=== PATIENT | male | born 1980 | race Caucasian/White ===

== ENCOUNTER 2021-05-26 08:27 | Emergency (ER) | payer OTHER, SELFPAY ==
[2021-05-26 08:40] VITALS: BP 124/78; PULSE 71; RESP 16; TEMP 36.6; O2SAT 99; BMI 31.7
[2021-05-26 09:01] LABS: COVID19 -Nasal RAPID Negative (Negative)
--- NOTE | 2021-05-26 09:28 | ED.URI ---
HPI - URI/Sore Throat General Chief Complaint: Upper Respiratory Symptoms Stated Complaint: COVID SYMPTOMS Time Seen by Provider: 05/26/21 09:15 History of Present Illness HPI Narrative: Patient is a 40-year-old male with history of mental health illness presenting with upper respiratory like symptoms concern for COVID. He states that he is fully vaccinated, who was exposed 6 days ago while at work. His of the following day he had headache and diarrhea. Diarrhea resolved. Symptoms progressed and upper respiratory like symptoms as chest congestion and this morning he woke up without taste. Last night he slept under multiple blankets he was quite cold which is abnormal. Related Data Home Medications Medication Instructions Recorded Confirmed trazodone 100 mg tablet 100 mg PO DAILY 01/23/21 05/23/21 fluoxetine 60 mg tablet 60 mg PO DAILY 05/23/21 05/23/21 Allergies Allergy/AdvReac Type Severity Reaction Status Date / Time No Known Drug Allergies Allergy Unverified 05/23/21 14:13 Review of Systems Review of Systems Narrative: GENERAL: Denies chills, fatigue, malaise, fever, sweats, travel HEENT: Denies sinus pain, ear pain, sore throat, difficulty swallowing, neck pain RESPIRATORY: See HPI CARDIOVASCULAR: Denies chest pain, palpitations, orthopnea, edema GASTROINTESTINAL: She has PI : Denies dysuria, frequency, incontinence, hematuria, urinary retention, flank pain. MUSCULOSKELETAL: Denies weakness, joint pain, or bony pain SKIN: No rash, no erythema, no pruritus NEUROLOGIC: Denies weakness, dizziness, headache, numbness, change in speech, confusion PSYCHIATRIC: No concerning psychosocial issues. 12 point review of systems is negative except for those stated above and HPI Patient History Family History Family/Other Loud snoring Father Loud snoring Sleep apnea Obesity Heart disease Depression Anxiety Mother Depression Anxiety Family/Other Depression Family/Other Asperger syndrome Social History Smoking Status: Former smoker Smoking Status: Former smoker alcohol intake frequency: a few times a week Alcohol type: beer Substance Use Type: does not use Exam Initial Vital Signs Initial Vital Signs: Vital Signs Temperature 98 F 05/26/21 08:40 Pulse Rate 71 05/26/21 08:40 Respiratory Rate 16 05/26/21 08:40 Blood Pressure 124/78 05/26/21 08:40 Pulse Oximetry 99 05/26/21 08:40 GENERAL: Well-appearing, well-nourished and in no acute distress. HEENT: Head atraumatic,EOMI, pupils reactive, face symmetric, moist mucous membranes CARDIOVASCULAR: Regular rate and rhythm without murmurs, rubs or gallops. RESPIRATORY: Breath sounds equal bilaterally, no wheezes rales or rhonchi. ABDOMEN: Soft, nontender. Normoactive bowel sounds all 4 quadrants. No guarding or rebound. EXTREMITIES: Normal range of motion, no clubbing or edema. Neurovascularly intact NEUROLOGICAL: Alert and oriented x4. SKIN: Warm, dry, no laceration, no petechiae, no rashes or lesions. Course Orders Ordered: ED Orders 05/26/21 08:40 COVID19 -Nasal swab/Pre-Proc Stat Vital Signs Vital signs: Vital Signs - 8 hr 05/26/21 08:40 05/26/21 09:30 Temperature 98 F Pulse Rate 71 70 Respiratory Rate 16 16 Blood Pressure 124/78 116/71 Pulse Oximetry 99 96 MDM - URI/Sore Throat Lab Data Labs: Lab Results 05/26/21 Range/Units 08:40 SARS-CoV-2 (PCR) Negative (Negative) MDM Narrative Medical decision making narrative: Patient is fully vaccinated although his symptoms are extremely concerning and he has had a known exposure. I recommend repeat testing in about 2-3 days in quarantine for 14 days. He understands and agrees. Discharge Plan Departure Patient Disposition: Home Clinical Impression: Upper respiratory infection Instructions: DI for COVID-19 (Suspected or Confirmed ) Activity Restrictions/Additional Instructions: *You have been diagnosed with suspected COVID *What to do: At this time I recommend you have repeat testing in about 2-3 days. Symptoms are certainly concerning for COVID you had exposure. Please monitor your oxygen at home with a home pulse oximeter. It should remain above 90%, if it is lower than that you need to return to the emergency department. You need to follow [facility] quarantine guidelines and quarantine for 14 days *Continue to take medications as directed *Follow up with your primary care provider in 2-3 days *Return to ER if you should have oxygen less than 90%, increasing chest pain, shortness or any new, worsening or concerning symptoms Prescriptions: No Action trazodone 100 mg tablet 100 mg PO DAILY RF: 0 fluoxetine 60 mg tablet 60 mg PO DAILY RF: 0 Referrals: [facility] [Provider Group] Stand Alone Forms: Work Release Note
[2021-05-26 09:30] VITALS: BP 116/71; PULSE 70; RESP 16; O2SAT 96
== END 2021-05-26 09:45 | disposition home or self-care (01) ==
PROVIDERS: Emergency Provider Emergency Medicine
DX: J06.9 Acute upper respiratory infection, unspecified (principal); R19.7 Diarrhea, unspecified; Z20.822 Contact with and (suspected) exposure to COVID-19
CPT/HCPCS: 87635; 99282; C9803

== ENCOUNTER → 2022-11-11 08:09 | Outpatient (CLI) | payer OTHER, SELFPAY ==
--- NOTE | 2022-11-11 | DI.MRI.S_ITS ---
PROCEDURE: MR ANKLE RT WO CON INDICATIONS: Other instability, right ankle TECHNIQUE: Noncontrast sagittal T1 spin echo and T2 fast spin echo with fat saturation, axial proton density fast spin echo and T2 fast spin echo with fat saturation, coronal T1 spin echo and T2 fast spin echo with fat saturation through the ankle/hindfoot. COMPARISON: None. FINDINGS: Image quality: Excellent. Bones and joints: No bone marrow contusions or fractures. No hindfoot coalitions. No osteochondral injuries of the talar dome. Small amount of tibiotalar and subtalar joint effusion is seen, no gross loose bodies.. Medial structures: The posterior tibialis, flexor digitorum longus, and flexor hallucis longus tendons are intact. Fluid distending tendon sheath of posterior tibialis tendon at the level of talonavicular joint is seen. The posterior tibial neurovascular bundle appears normal within the tarsal tunnel, without extrinsic mass effect. The deep layer (anterior and posterior tibiotalar ligaments) and superficial layer (tibionavicular, tibiospring, and tibiocalcaneal ligaments) of the deltoid ligament appear normal. The spring ligament components (superomedial calcaneonavicular, medioplantar oblique calcaneonavicular, and inferoplantar longitudinal ligaments) are intact. Lateral structures: The anterior talofibular, calcaneofibular, and posterior talofibular ligaments appear thickened with intrasubstance T2 hyperintense signal. More superiorly, the anterior and posterior tibiofibular ligaments appear intact, as is the intermalleolar ligament. The tibiofibular syndesmosis is normal in width at 2 mm or less. The peroneus longus and brevis tendons demonstrate normal location and morphology. Adjacent bony peroneal tubercle and retrotrochlear prominence are normal in size. The sinus tarsi demonstrates normal fatty signal, without edema, fibrosis, or cyst formation. Visualized sinus tarsi components (cervical ligament, interosseous talocalcaneal ligament, roots of the inferior extensor retinaculum) appear normal. The calcaneonavicular and calcaneocuboid components of the bifurcate ligament appear intact. The dorsal calcaneocuboid ligament appears intact. Anterior structures: The tibialis anterior, extensor hallucis longus, and extensor digitorum longus tendons appear intact. The dorsal talonavicular ligament appears intact. Posterior and plantar structures: Achilles tendon is intact. Medial and lateral bands of the plantar fascia are of normal thickness. No abductor digiti quinti muscle atrophy to suggest Clark neuropathy. IMPRESSION: 1. No marrow edema. No fracture or dislocation. Small amount of joint effusion. No osteochondral injuries of talar dome. 2. Low-grade tenosynovitis involving posterior tibialis tendon at the level of talonavicular joint. 3. Low-grade sprain/partial-thickness tear involving anterior and posterior talofibular ligaments and calcaneofibular ligament. Medial ankle ligaments are intact. Dictated by: Baljinder Moon M.D. on 11/11/2022 at 10:44 Approved by: Baljinder Moon M.D. on 11/11/2022 at 11:38
== END ==
PROVIDERS: Referring Provider Podiatrist; Visit Provider Podiatrist
DX: S93.411A Sprain of calcaneofibular ligament of right ankle, initial encounter (principal); S93.491A Sprain of other ligament of right ankle, initial encounter; M25.571 Pain in right ankle and joints of right foot; M25.371 Other instability, right ankle; R26.2 Difficulty in walking, not elsewhere classified; M25.471 Effusion, right ankle; M65.871 Other synovitis and tenosynovitis, right ankle and foot
CPT/HCPCS: 73721

== ENCOUNTER → 2022-12-03 15:34 | Outpatient (CLI) | payer OTHER, SELFPAY ==
--- NOTE | 2022-12-03 | DI.MRI.S_ITS ---
PROCEDURE: MR ANKLE LT WO CON INDICATIONS: Pain in left ankle and joints of left foot TECHNIQUE: Noncontrast sagittal T1 spin echo and T2 fast spin echo with fat saturation, axial proton density fast spin echo and T2 fast spin echo with fat saturation, coronal T1 spin echo and T2 fast spin echo with fat saturation through the ankle/hindfoot. COMPARISON: [facility], MR, MR ANKLE RT WO CON, 11/11/2022, 8:49. None. FINDINGS: Image quality: Excellent. Bones and joints: No bone marrow contusions or fractures. No hindfoot coalitions. No osteochondral injuries of the talar dome. Medial structures: The deep and superficial layers of the deltoid ligament appear intact. The spring ligament components are intact. Small amount of fluid is seen in the distal posterior tibialis tendon sheath, which may indicate mild tenosynovitis. The flexor digitorum longus and flexor hallucis longus tendons are intact. The posterior tibial neurovascular bundle appears normal within the tarsal tunnel, without extrinsic mass effect. Lateral structures: Remote prior low-grade sprain of the anterior talofibular ligament and calcaneofibular ligament. The posterior talofibular ligament is intact. The anterior and posterior tibiofibular ligaments appear intact. The distal peroneus brevis tendon is not seen below the level of the peroneal tubercle, and high-grade or full-thickness tendon tearing cannot be excluded. The peroneus longus tendon also appears attenuated from the level of the distal calcaneus to the lateral cuboid, and partial tearing may be present. The sinus tarsi demonstrates normal fatty signal. Anterior structures: The tibialis anterior, extensor hallucis longus, and extensor digitorum longus tendons appear intact. The dorsal talonavicular ligament appears intact. Posterior and plantar structures: Achilles tendon is intact. Medial and lateral bands of the plantar fascia are of normal thickness. No abductor digiti quinti muscle atrophy to suggest Clark neuropathy. IMPRESSION: 1. Suspected high-grade or complete tearing of the peroneus brevis tendon, which is not well visualized below the level of the peroneal tubercle. 2. Attenuation of the peroneus longus tendon from the level of the peroneal tubercle to the lateral cuboid is suspicious for partial tearing. Some of the tendon fibers remain in continuity. 3. Remote prior low-grade sprains of the anterior talofibular ligament and calcaneofibular ligament. 4. Mild tenosynovitis of the distal posterior tibialis tendon. Approved by: Palomo Ba M.D. on 12/04/2022 at 9:47
== END ==
PROVIDERS: Referring Provider Podiatrist; Visit Provider Podiatrist
DX: M25.372 Other instability, left ankle (principal); M25.572 Pain in left ankle and joints of left foot; S93.492A Sprain of other ligament of left ankle, initial encounter; S93.411A Sprain of calcaneofibular ligament of right ankle, initial encounter; M65.872 Other synovitis and tenosynovitis, left ankle and foot
CPT/HCPCS: 73721

== ENCOUNTER 2023-06-23 10:13 | Emergency (ER) | payer OTHER, SELFPAY ==
[2023-06-23 10:20] VITALS: BP 117/77; PULSE 89; RESP 14; TEMP 36.5; O2SAT 99; BMI 34.0
[2023-06-23 10:40] VITALS: PULSE 78
--- NOTE | 2023-06-23 11:12 | DI.RAD.S_ITS ---
PROCEDURE: XR ANKLE RT MIN 3V INDICATIONS: foot pain TECHNIQUE: 3 views of the ankle were acquired. COMPARISON: None. FINDINGS: Bones: Surgical hardware is noted at calcaneocuboid joint with partial bony fusion of the joint. No gross hardware loosening or failure. No acute fractures or dislocations. Ankle mortise is normally aligned. No suspicious bony lesions. Soft tissues: Mild soft tissue swelling over lateral malleolus is seen. No tibiotalar joint effusion. Achilles tendon appears normal. IMPRESSION: No gross acute right ankle fracture or dislocation. Prior fusion of calcaneocuboid joint. Mild lateral ankle soft tissue swelling. Dictated by: Baljinder Moon M.D. on 06/23/2023 at 11:46 Approved by: Baljinder Moon M.D. on 06/23/2023 at 11:47
--- NOTE | 2023-06-23 11:12 | DI.RAD.S_ITS ---
PROCEDURE: XR FOOT RT MIN 3V INDICATIONS: foot pain TECHNIQUE: 3 views of the foot were acquired. COMPARISON: None. FINDINGS: Bones: No fractures or dislocations. Prior fusion of calcaneocuboid joint is seen with partial bony union and surgical hardware in place. No gross hardware loosening or failure. No suspicious bony lesions. Soft tissues: No tibiotalar joint effusion. Achilles tendon appears normal. IMPRESSION: No acute right foot fracture or dislocation. Postsurgical changes at calcaneocuboid joint as above. Dictated by: Baljinder Moon M.D. on 06/23/2023 at 11:47 Approved by: Baljinder Moon M.D. on 06/23/2023 at 11:48
--- NOTE | 2023-06-23 11:14 | ED_ITS ---
HPI - Extremity Problem <Eliel Cotton PA-C - Last Filed: 06/23/23 14:09> General Chief complaint: Extremity Problem,Nontraumatic Stated complaint: POST PAIN FROM SURGERY RIGHT FOOT Time Seen by Provider: 06/23/23 11:02 Source: patient Mode of arrival: Ambulatory History of Present Illness HPI Narrative: 42-year-old male status post a right foot fusion surgery 3 months ago presents to the ED with right foot pain. Patient states that 3 days ago, he was trying to [place]lyss[place] of a coyote, accidentally stopped on his right foot as a reflex, since when his foot has been extremely painful. Patient is able to bear weight and walk. Denies numbness, tingling, weakness. Patient states that ibuprofen and Tylenol are not sufficiently touching the pain. Patient has a appointment with his surgeon in 5 days. Patient spoke with his surgeon who said they were unable to prescribe pain medications 6 weeks past his surgery. 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 Related Data Home Medications Medication Instructions Recorded Confirmed trazodone 100 mg tablet 100 mg PO DAILY 01/23/21 05/23/21 fluoxetine 60 mg tablet 60 mg PO DAILY 05/23/21 05/23/21 Allergies Allergy/AdvReac Type Severity Reaction Status Date / Time No Known Drug Allergies Allergy Verified 06/23/23 10:25 Review of Systems <Eliel Cotton PA-C - Last Filed: 06/23/23 14:09> Review of Systems ROS Unobtainable: All systems reviewed & are unremarkable except as noted in HPI and below Constitutional Constitutional: Denies chills, Denies fatigue, Denies fever(s), Denies frequent falls, Denies lethargy and Denies weakness Eyes Eyes: Denies change in vision, Denies eye discharge, Denies irritation and Denies loss of vision ENT Ears, Nose, Mouth, and Throat: Denies change in voice, Denies dizziness, Denies neck pain, Denies sore throat and Denies throat swelling Cardiovascular Cardiovascular: Denies chest pain, Denies irregular heart rhythm, Denies lightheadedness, Denies palpitations, Denies dyspnea, Denies dyspnea on exertion and Denies orthopnea Respiratory Respiratory: Denies cough, Denies dyspnea, Denies dyspnea on exertion and Denies wheezing Gastrointestinal Gastrointestinal: Denies abdominal pain, Denies change in bowel habits, Denies diarrhea, Denies nausea and Denies vomiting Genitourinary Genitourinary: Denies hematuria, Denies flank pain, Denies urinary incontinence and Denies urinary urgency Musculoskeletal Musculoskeletal: Denies back pain, Denies muscle weakness, Denies neck pain, Denies numbness and Denies tingling Comments: Right foot pain Integumentary/Breasts Skin/Breast: Denies pruritus, Denies erythema, Denies rash and Denies wounds Neurologic Neurologic: Denies behavioral changes, Denies confusion, Denies dizziness, Denies frequent falls, Denies loss of vision, Denies numbness, Denies tingling and Denies weakness Psychiatric Psychiatric: Denies anxiety, Denies behavioral changes, Denies confusion, Denies depression, Denies homicidal ideation and Denies suicidal ideation Endocrine Endocrine: Denies fatigue, Denies flushing and Denies palpitations Hematologic/Lymphatic Hematologic/Lymphatic: Denies easy bruising Allergic/Immunologic Allergic/Immunologic: Denies urticaria, Denies throat swelling and Denies wheezing Patient History <Eliel Cotton PA-C - Last Filed: 06/23/23 14:09> Medical History Fatigue due to sleep pattern disturbance (~2015) Obesity (BMI 30-39.9) (Unknown) Obstructive sleep apnea, adult (~04/2021) Snoring (~2015) Family History Family/Other Loud snoring Father Loud snoring Sleep apnea Obesity Heart disease Depression Anxiety Mother Depression Anxiety Family/Other Depression Family/Other Asperger syndrome Social History Smoking Status: Former smoker Smoking Status: Former smoker alcohol intake frequency: a few times a week Alcohol type: beer Substance Use Type: does not use Exam <Eliel Cotton PA-C - Last Filed: 06/23/23 14:09> Narrative Exam Narrative: Const General:?cooperative, healthy appearing and comfortable [facility] Head:?normal to inspection Ears:?hearing grossly normal bilaterally Nose:?external nose normal Face and sinus:?normal facial exam and sinuses nontender Mouth:?oral mucosae normal Throat:?posterior oropharynx normal Eyes General:?appearance normal, both eyes and all related structures Neck Neck:?normal visual inspection and no lymphadenopathy noted Resp Effort & Inspection:?normal respiratory effort Auscultation:?clear to auscultation bilaterally Cardio Rate:?regular rate Rhythm:?regular rhythm Musculoskeletal Right foot with well healed surgery incision. Tenderness to palpation. No bruising. No deformities. Full range of motion. Strength and sensation intact. Patient is neurovascularly intact. Neuro General:?patient alert, patient awake and patient oriented x3 Initial Vital Signs Initial Vital Signs: Vital Signs Temperature 97.7 F 06/23/23 10:20 Pulse Rate 89 06/23/23 10:20 Respiratory Rate 14 06/23/23 10:20 Blood Pressure 117/77 06/23/23 10:20 Pulse Oximetry 99 06/23/23 10:20 Oxygen Delivery Method Room Air 06/23/23 10:20 <DO Michelle Tavera Last Filed: 06/23/23 14:38> Initial Vital Signs Initial Vital Signs: Vital Signs Temperature 97.7 F 06/23/23 10:20 Pulse Rate 89 06/23/23 10:20 Respiratory Rate 14 06/23/23 10:20 Blood Pressure 117/77 06/23/23 10:20 Pulse Oximetry 99 06/23/23 10:20 Oxygen Delivery Method Room Air 06/23/23 10:20 Course <Eliel Cotton PA-C - Last Filed: 06/23/23 14:09> Orders Ordered: ED Orders 06/23/23 11:12 XR ankle RT min 3V Stat XR foot RT min 3V Stat Vital Signs Vital signs: Vital Signs - 8 hr 06/23/23 10:20 06/23/23 10:40 Temperature 97.7 F Pulse Rate 89 Pulse Rate [Right Dorsalis Pedis] 78 Respiratory Rate 14 Blood Pressure 117/77 Pulse Oximetry 99 Oxygen Delivery Method Room Air <DO Michelle Tavera Last Filed: 06/23/23 14:38> Orders Ordered: ED Orders 06/23/23 11:12 XR ankle RT min 3V Stat XR foot RT min 3V Stat Vital Signs Vital signs: Vital Signs - 8 hr 06/23/23 10:20 06/23/23 10:40 Temperature 97.7 F Pulse Rate 89 Pulse Rate [Right Dorsalis Pedis] 78 Respiratory Rate 14 Blood Pressure 117/77 Pulse Oximetry 99 Oxygen Delivery Method Room Air MDM - Extremity (Nontraumatic) <Eliel Cotton PA-C - Last Filed: 06/23/23 14:09> MDM Narrative Medical decision making narrative: 42-year-old male status post a right foot fusion surgery 3 months ago presents to the ED with right foot pain. Concern for fracture/dislocation versus musculoskeletal sprain/strain versus postsurgical sequelae versus other. Will obtain x-rays, reassess. X-ray with no acute finding. Patient's symptoms likely due to a musculoskeletal sprain/strain. Recommend continued supportive care with rice, Tylenol, ibuprofen. Recommend follow-up with his foot surgeon. Patient has a appointment next week with his surgeon. Recommend follow-up with pain management as recommended to him by his PCP. ED return precautions discussed with patient. Patient verbalized understanding. Medical records reviewed: Yes. Discharge Plan Departure Patient Disposition: Home Clinical Impression: Foot pain Instructions: DI for Foot Pain Activity Restrictions/Additional Instructions: You were evaluated in the ED today for foot pain. The x-ray did not show any new injuries. Your symptoms are likely due to a musculoskeletal sprain/strain from the injury. You may continue taking 800 mg of ibuprofen, 1000 mg of Tylenol 3 times a day with food. Please follow-up with your foot surgeon as scheduled in 5 days. Please also follow-up with pain management for further evaluation. Return to the ED if you experience numbness, tingling, weakness, worsening symptoms. Prescriptions: No Action trazodone 100 mg tablet 100 mg PO DAILY fluoxetine 60 mg tablet 60 mg PO DAILY Stand Alone Forms: Patient Portal/API <Leroy Lin DO - Last Filed: 06/23/23 14:38> Cosign ED Attending Cosignature Attestation: Dr Lin Co-Sign Statement: I was available for consultation during this patient's emergency department visit. This chart is signed by myself for administrative purposes only. I did not have direct contact with this patient during this visit. They were seen independently by the APC.
== END 2023-06-23 12:06 | disposition home or self-care (01) ==
PROVIDERS: Emergency Provider Student in an Organized Health Care Education/Training Program
DX: M79.671 Pain in right foot (principal)
CPT/HCPCS: 73610; 73630; 99283